=== PATIENT | male | born 1975 | race African-American/Black ===

== ENCOUNTER 2016-10-24 10:43 | Emergency (ER) | payer MEDICAID ==
[~2016-10-24] VITALS: Ht 177.8 cm; Wt 82.6 kg
[~2016-10-24 10:43] MED LIST: AMOXICILLIN 50500 MG PO; INDOMETHACIN50 MG PO; LODINE200 MG PO; LODINE400 MG PO; MOTRIN600 M1 PO; NOMEDS; PREDNISONE 20MG20 MG PO
--- NOTE | 2016-10-24 10:55 | [facility] Report ---
History of Present Issue Date/Time Seen by Provider 10/24/16 1055 Visit Reason Pt arrived:Walked Presenting Problem:PT STATES LOWER BACK PAIN THAT RADIATES DOWN RIGHT LEG X1 WEEK Location if Accident: Onset of symptoms date/time:/ or onset unknown for:MEDICAL HX UNKNOWN Have you (or family members/close friends) recently traveled outside the [place]? N If Yes, where/when: Have you had exposure to infectious disease within the past month? TB? Other? Specify: c/o aime low back pain w/ radiating sharp pain down back of right thigh. Started w/ mild ache when he woke up Monday morning, 3 days ago. "I just thought I tweaked it". However mild ache persistant and now radiating pain in right posterior thigh. Pulled back muscle approx 1-2 years ago after falling on buttock, this feels similiar. no known injury however works out/lifts weights often. Ibuprofen and stretching helps. Sitting or laying too long or walking too much aggravates the pain. Denies N/T, limited ROM, incontinence. Mostly here for a work note because he called in today. Thinks the pain will work itself out. Requesting to return to work tomorrow "because I need to work. I can't miss anything else." Source patient Exam Limitations no limitations ALLERGIES Coded Allergies: No Known Allergies (11/15/15) History Medical History General CAD? No Angina: No [place]: No Hypertension? No Hyperlipidemia? No CHF? No DVT? No PE? No COPD? No Asthma? No Anemia? No GERD? No Gastric ulcers? No GI Bleed? No Hernia? No Thyroid Problems? No Hypothyroidism? No CVA? No Seizures? No Diabetes? No Renal Insuffiency? No UTI? No Stones? No GB Disease: No Nephritic Syndrome? No Asplenia? No Hepatitis? No Sickle Cell Disease? No Arthritis? No Migraines? No Cataracts? No Glaucoma? No MRSA? No HIV? No TB? No Anxiety? No Depression? No Cancer? No Immunization HX DT/Tetanus 1-4 YRS Surgical Hx Previous Surgery?Y LEFT KNEE SURGERY Social History Smoking Hx Smoker: Never Smoker Tobacco: No Packs/day N/A Alcohol Alcohol: No Review of Systems All Other Systems Reviewed and Negative Constitutional denies fever, denies malaise Genitourinary denies: pelvic pain. Musculoskeletal see HPI Skin denies change in color, denies lesions, denies lumps, denies rash Psychiatric/Neurological see HPI Physical Exam Vital Signs Vital Signs Date Time Temp Pulse Resp B/P Pulse O2 O2 Flow FiO2 Ox Delivery Rate 10/24 1053 98.1 56 20 139/96 99 General Appearance normal appearance, no apparent distress Respiratory Status No: respiratory distress. Cardiovascular no peripheral edema Back normal inspection, no CVA tenderness, bowel/bladder continent, gait normal, strt leg raising(L)-NML, strt leg raising(R)-NML, mild tenderness aime lumbar regions and lumbar spine w/ moderate tenderness aime SI joints Extremities non-tender (BLE), normal range of motion (BLE) Strength 5 Lower Ext (L), 5 Lower Ext (R) Neurologic alert, no motor/sensory deficits, oriented x 3 Mental status normal mood/affect Skin normal color, warm/dry Medical Decision Making LABS/Meds/Orders Pt receiving controlled substance in ED? No Departure Departure Time of Disposition 1119 Disposition DC Home or Self Care(routine) Clinical Impression Primary Impression: Strain of muscle, fascia and tendon of lower back, initial encounter Secondary Impressions: Sciatica, right side Condition STABLE Referrals NO REFERRAL Follow up with primary care immediately for new, worsening or persistant symptoms. If you can't get in to see them and symptoms are worse, return to [facility], [place] or ER. Patient Instructions DI for Low Back Pain, DI for Sciatica Additional Instructions * naproxen every 12 hours with meal as needed for pain/inflammation. * No additional anti-inflammatories like motrin, aleve, advil with the above amount of ibuprofen. You CAN still take Tylenol every 4 hours as needed if you need something more for pain. * Ice x15-20 mins 3-4 times a day and if this doesn't help, try moist heat x15- 20 mins 3-4 times a day to affected area * Keep this area active. No movement leads to more stiffness. However, take it easy too and avoid heavy lifting, pushing, pulling Discharge Counseling Counseled pt/family regarding diagnosis, medications/RX, home care, follow up needs Prescriptions Current Visit Scripts NAPROXEN (NAPROSYN 500MG TAB) 500 MG PO BID #28 TAB take with food at 1127
[2016-10-24] MEDS ORDERED: NAPROSYN 500MG500 MG PO (11:22)
[2016-10-24 11:26] VITALS: BP 139/96
== END 2016-10-24 11:27 | disposition home or self-care (01) ==
LOC: UTC 10:43
DX: S39.012A Strain of muscle, fascia and tendon of lower back, initial encounter (principal); M54.31 Sciatica, right side